=== PATIENT | male | born 1990 | race Caucasian/White ===

== ENCOUNTER 2017-05-13 14:49 | Emergency (ER) | payer SELFPAY ==
[~2017-05-13] VITALS: Ht 175.3 cm; Wt 81.8 kg
[2017-05-13 14:53] VITALS: BP 134/81; PULSE 97; RESP 18; O2SAT 97
--- NOTE | 2017-05-13 15:28 | ED.REPORT ---
HPI-Dental/Mouth Prob Date of Service May 13, 2017 ED Provider: Chaitanya Palm MD The pt is a 26 y/o male presenting to the ED c/o a L dental infection onset last night. Denies dysphagia, fevers, or drainage. The pt has had a similar infection to this in the past that improved w/ antibiotics. Nursing Notes Stated Complaint: DENTAL PAIN Chief Complaint: L dental infection Nursing Notes Reviewed: Yes Allergies: Coded Allergies: No Known Allergies (Unverified , 05/13/17) Scheduled Amoxicillin/Clav K 875-125 mg (Augmentin 875-125 mg) 1 Each Tablet 1 TABLET PO BID Scheduled PRN Ibuprofen (Ibuprofen) 800 Mg Tablet 800 MG PO TID PRN PRN For Pain General Time Seen by MD: 15:27 Chief Complaint Other (L dental infection) Hx Obtained From: Patient Arrived By: Walk-in Onset Occurred: Yesterday Symptom Duration: Since onset Recent Healthcare: No recent doctor visit, No recent hospitalization Similar Sx Previous: Yes Past Medical History Past Medical History Dental infections; Past Surgical History None reported Smoking History Unknown if Ever Smoker Social History None reported Ambulatory Status Independent Review of Systems + L cheek swelling; Denies dysphagia, or drainage; Constitutional: Denies: Fever Complete sys rev & neg: except as marked. Physical Exam Initial Vital Signs Vital Signs (First) Date Time Temp Pulse Resp B/P Pulse Ox O2 Delivery O2 Flow Rate FiO2 05/13/17 14:53 36.7 97 18 134/81 97 Room Air Initial VS: Reviewed General/Constitutional: Well-developed, Well-nourished Respiratory: Breath sounds normal, Clear to auscultation, No respiratory distress Cardiovascular: Regular rate & rhythm, Heart sounds normal, Intact distal pulses Extremities: Vascular intact, Neuro intact, No swelling, No tenderness Skin: Warm, Dry, No cyanosis Neurologic: Alert, Oriented, Nonfocal Psychiatric: Mood/affect normal, Behavior normal, Normal thought content ENT: Airway patent Mild tenderness to L lower molar; Neck: Atraumatic, Supple, Full range of motion Head / Eyes: Normocephalic Mild swelling of L lower cheek; No fluctuance or discharge; Re-Eval/Medical Decision Med Decision/Clinical Course 26-year-old male with history of dental infections presenting with left lower molar pain for mild left cheek swelling. There is no evidence of abscess. His left lower molar is tender. No dysphagia or excessive salivation. Will treat with antibiotics. Return precautions given. Source of Hx: Old records Counseled Regarding: Diagnosis, Need for follow-up, When/why to return to ED Discharge & Departure Primary Impression: Dental infection Disposition: Home Discharge Condition All VS Reviewed: Yes Condition: Stable Additional Instructions: Thank for you entrusting us with your care today. Please take the antibiotics as prescribed and your swelling should decrease over time. Please return to the emergency department if the swelling does not go down, it becomes more swollen, you have difficultly swallowing or speaking, or you experience any new or worsening symptoms. I hope you feel better soon. Referrals: NOPCP (PCP) Blanca Herronibe Attestation Portions of this note were transcribed by Anibal Coker. I, Dr. Palm personally performed the history, physical exam and medical decision-making; I reviewed and confirmed the accuracy of the information in the transcribed note. copies to: Blanca Herron Ben M MD May 13, 2017 15:28 Anibal Coker May 13, 2017 16:13
[2017-05-13] MEDS ORDERED: AMOX-366 PO (16:12)
[2017-05-13] MEDS ORDERED: IBUP800T28 PO (16:12)
== END 2017-05-13 16:30 | disposition home or self-care (01) ==
LOC: SED 15:19
DX: K04.7 Periapical abscess without sinus (principal)